=== PATIENT | male | born 1985 | race Caucasian/White ===

== ENCOUNTER 2024-01-05 14:55 | Observation (INO) | payer BC, SELFPAY ==
--- NOTE | 2024-01-05 13:35 | ADMGEN ---
This patient, Aneudy Montes, was admitted to Medical Room 252-01. Patient/family oriented to hospital policies and general routines including ID bracelet, bed and alarms, visiting hours, pain management, procedures, bathroom and other care routines, personal items, smoking policy, room service/diet, and visiting hours. Information on how to activate the Rapid Response Team has been discussed. Patient/Family are encouraged to report perceived risks to care and to ask questions if they do not understand what they are told or what they should do.
[2024-01-05 14:10] VITALS: BP 111/74; PULSE 76; RESP 16; TEMP 36.5; O2SAT 97
[2024-01-05 14:14] VITALS: BMI 22.4
--- NOTE | 2024-01-05 15:07 | PM.IMHP ---
H&P: HPI History of Present Illness Date/Time: 01/05/24 15:07 Chief Complaint: Seizure Narrative: 38 y/o M presents here with seizure activity with PMH of alcohol abuse, GERD, anxiety/depression, and seizure. The patient presents here from [facility]. Patient was initially seen there after he had a seizure for which he was postictal for approximately 30 minutes. Spouse at the bedside reports the the seizure occurred either just before he was going to get up to the restroom or while he was asleep. Occurred around 03:30 am. Patient was stable and prepped for discharge when he had a witnessed tonic-clonic seizure which was aborted with 2 mg of Ativan. Prior to second seizure which occurred around 06:30 am, spouse reports that the patient appeared ill and looked nauseated. Post seizure-like activity he became hypoxic which has since resolved. Patient reports his last drink was on Tuesday 01/02 when he had 2 drinks but he reports that he drank heavily over the weekend. He drinks approximately 12-15 beers x3-4 days. Patient reports he has heavily drank for a number of years with intermittent times of cessation but has been drinking more heavily in the last year. Patient does not have a previous history of seizure activity or seizure activity with withdrawal. No recent trauma or head injury. Initial VS at presentation: 97.7? F, HR 76, RR 16, 111/74, and 97% on RA. Workup at OSH showed: no leukocytosis, hgb 12.5, crepe maker 1.26 and GFR 74, normal AST/ALT, Mag 1.7, and UDS showed marijuana. Head CT showed no acute intracranial abnormalities. MRI w/o con showed the petrous and cavernous portions of the internal carotid arteries are patent. Anterior cerebral arteries are patent. Middle cerebral arteries are patent. Termination of the right vertebral artery and a posterior right inferior cerebral artery branch. The hip basilar arteries patent. Left vertebral artery dominant posterior circulation. Prominent left posterior communicating artery. Posterior cerebral arteries are patent. Review of Systems Review of Systems: All systems reviewed & are unremarkable except as noted in HPI and below [facility] Past Medical History Medical History (Updated 01/05/24 @ 16:54 by Chastity Hedrick, PEREZ) Alcohol abuse Anxiety Depression GERD (gastroesophageal reflux disease) Hernia Family History Family History Other No significant medical problems Social History Social History Years smoked: 19 Smoking status: Current every day smoker Tobacco type: cigarettes Alcohol intake: current Drinks per week: 36 Substance use: current Substance use type: marijuana Last use: 01/04/24 Do You Feel Safe in your Home?: Yes Lack of Transportation: No Lack of Food: Never True Current Housing: I Have Housing Concerned About Future Housing: No Difficulty Paying Gas/Electric Bills: No Difficulty Paying for Meds: No Currently Unemployed: No Education: Bachelor's Degree Difficulty w/ Childcare or Family Care: No Spiritual care concerns: No Meds Home Medications and Allergies Home Medications Medication Instructions Recorded Confirmed Type No Home Medications 01/05/24 01/05/24 History Allergies Allergy/AdvReac Type Severity Reaction Status Date / Time No Known Allergies Allergy Verified 01/05/24 13:59 Vital Signs Vital Signs - 24 hr 01/05/24 14:00 01/05/24 14:10 Temperature 97.7 F Pulse Rate 76 Respiratory Rate 16 Blood Pressure 111/74 Pulse Oximetry 97 Oxygen Delivery Room Air Exam Const: General: comfortable and no acute distress Other: , male, nontoxic appearance HENMT: Face/Nose/Sinus: Normal nares present Mouth: Yes moist mucous membranes Eyes: General: appearance normal, both eyes and all related structures Sclera: sclerae normal
[2024-01-05] MEDS: chlordiazePOXIDE (*CRX) 25 MG CAPSULE PO ×2 (15:24→23:14)
[2024-01-05 15:45] LABS: Alanine Aminotransferase 24 U/L (6-50); Albumin Level 3.8 g/dL (3.5-5.1); Alkaline Phosphatase 39 U/L (38-126); Anion Gap 6 mmol/L (4-12); Aspartate Amino Transferase 49 U/L (17-59); Blood Urea Nitrogen 7 mg/dL (9-20); Calcium 8.4 mg/dL (8.4-10.2); Carbon Dioxide 28 mmol/L (22-30); Chloride 101 mmol/L (98-107); Estimated CRCL calculation 126 ml/min; Estimated Glomerular Filt Rate > 60; Glucose 92 mg/dL (65-110); Magnesium 2.3 mg/dL (1.6-2.3); Potassium 3.8 mmol/L (3.4-5.0); Sodium 135 mmol/L (137-145)
[2024-01-05 16:04] VITALS: PULSE 73
[2024-01-05 20:00] VITALS: PULSE 89
[2024-01-05 22:00] VITALS: BP 122/73; PULSE 83; RESP 18; TEMP 36.7; O2SAT 99
[2024-01-05] MEDS: MELATONIN 5 MG TABLET PO (23:14)
[2024-01-05 23:24] LABS: Glucose Point of Care 87 mg/dl (65-105)
[2024-01-06] VITALS: PULSE 64
[2024-01-06 04:00] VITALS: PULSE 71
[2024-01-06 06:00] VITALS: BP 124/85; PULSE 78; RESP 18; TEMP 36.7; O2SAT 97
[2024-01-06 06:04] LABS: Basophils Percent Auto 0.7 % (0.2-1.2); Eosinophils Absolute Auto 0.1 K/mm3 (0-0.3); Eosinophils Percent Auto 1.3 % (0-4.4); Hematocrit 38.8 % (42.0-52.0); Hemoglobin 13.1 g/dL (14.0-18.0); Immature Granulocyte Absolute 0.01 K/mm3 (0.00-0.031); Immature Granulocyte Percent A 0.2 % (0-0.5); Lymphocytes Absolute Auto 1.47 K/mm3 (0.9-3.2); Lymphocytes Percent Auto 26.7 % (18.3-44.2); Mean Corpuscular HGB Conc 33.8 g/dl (32-36); Mean Corpuscular Hemoglobin 34.2 pg (26-34); Mean Corpuscular Volume 101.3 fl (80-100); Monocytes Absolute Auto 0.8 K/mm3 (0.1-0.6); Monocytes Percent Auto 14.9 % (2.6-8.5); Neutrophils Absolute Auto 3.1 K/mm3 (1.3-6.7); Neutrophils Percent Auto 56.2 % (45.5-73.1); Platelet Count Result 209 k/mm3 (150-375); Red Blood Count 3.83 M/mm3 (4.6-6.20); Red Cell Distribution Width 12.2 % (11.5-14.5); White Blood Count 5.5 K/mm3 (4.5-10.0)
[2024-01-06 06:15] LABS: Glucose Point of Care 93 mg/dl (65-105)
[2024-01-06 07:20] LABS: Folic Acid > 20.0 ng/mL (2.76->20)
[2024-01-06 08:00] VITALS: PULSE 70
[2024-01-06] MEDS: FOLIC ACID 1 MG TABLET PO (08:21)
[2024-01-06] MEDS: THIAMINE HCL 200 MG/2 ML VIAL 100 MG IV PUSH (08:21)
--- NOTE | 2024-01-06 10:45 | PM.DS ---
DS: Admitting Diagnosis Discharge Date 01/06/2024 Admitting Diagnosis Seizures DS: Discharge Diagnosis Discharge Diagnosis (1) Seizure: Code(s): R56.9 - Unspecified convulsions Status: Acute Assessment and Plan: - Head CT and MRI at OSH unremarkable - hx of binge drinking/heavy alcohol use - but seizures do not appear alcholol related - neurology rounding - started on Keppra at OSH - pt to have EEG prior to DC - and follow in neurology clinic - pt dc with keppra 750 mg po bid (2) Alcohol abuse: Code(s): F10.10 - Alcohol abuse, uncomplicated Status: Acute Assessment and Plan: - appears to be more in line with binge drinking - thiamine and folic acid daily - last drink on Tuesday 01/02 - continue as outpatient - pt advised to stop drinking alcholol DS: Summary Hospital Course Hospital Course: 38 y/o M presents here with seizure activity with PMH of alcohol abuse, GERD, anxiety/depression, and seizure. The patient presents here from [place], [place] Patient was initially seen there after he had a seizure for which he was postictal for approximately 30 minutes. Spouse at the bedside reports the the seizure occurred either just before he was going to get up to the restroom or while he was asleep. Occurred around 03:30 am. Patient was stable and prepped for discharge when he had a witnessed tonic-clonic seizure which was aborted with 2 mg of Ativan. Prior to second seizure which occurred around 06:30 am, spouse reports that the patient appeared ill and looked nauseated. Post seizure-like activity he became hypoxic which has since resolved. Patient reports his last drink was on Tuesday 01/02 when he had 2 drinks but he reports that he drank heavily over the weekend. He drinks approximately 12-15 beers x3-4 days. Patient reports he has heavily drank for a number of years with intermittent times of cessation but has been drinking more heavily in the last year. Patient does not have a previous history of seizure activity or seizure activity with withdrawal. No recent trauma or head injury. Initial VS at presentation: 97.7? F, HR 76, RR 16, 111/74, and 97% on RA. Workup at OSH showed: no leukocytosis, hgb 12.5, bedspread cutter hand 1.26 and GFR 74, normal AST/ALT, Mag 1.7, and UDS showed marijuana. Head CT showed no acute intracranial abnormalities. MRI w/o con showed the petrous and cavernous portions of the internal carotid arteries are patent. Anterior cerebral arteries are patent. Middle cerebral arteries are patent. Termination of the right vertebral artery and a posterior right inferior cerebral artery branch. The hip basilar arteries patent. Left vertebral artery dominant posterior circulation. Prominent left posterior communicating artery. Posterior cerebral arteries are patent. - Head CT and MRI at OSH unremarkable - hx of binge drinking/heavy alcohol use - started on Keppra at OSH - pt to have EEG prior to DC - and follow in neurology clinic - pt dc with keppra 750 mg po bid Time Spent with Patient Time attestation: Total time spent providing and/or coordinating discharge services:50 minutes on day of dc Exam Const: General: comfortable and no acute distress Other: , male, nontoxic appearance HENMT: Face/Nose/Sinus: Normal nares present Mouth: Yes moist mucous membranes Eyes: General: appearance normal, both eyes and all related structures Sclera: sclerae normal Pupils: Equal, round and reactive pupils present EOM: EOMs intact bilaterally Resp: Effort & Inspection: normal respiratory effort Auscultation: clear to auscultation bilaterally Cardio: Rate: regular rate Rhythm: regular rhythm Other: S1-S2 present without murmur, rub, ectopy Skin: General skin exam: normal color and no rashes or lesions noted Wounds: no wounds Other: skin dry Neuro: Cranial nerves: Yes Equal, round and reactive pupils present Speech: normal speech
--- NOTE | 2024-01-06 10:57 | WPDNEURCNPN ---
Assessment and Plan Assessment and plan (1) Seizure: Code(s): R56.9 - Unspecified convulsions Status: Acute (2) Alcohol abuse: Code(s): F10.10 - Alcohol abuse, uncomplicated Status: Acute Plan I did not see any alcohol withdrawal features at the time the examination this morning. He does not have any tremor of the hand. He appears fairly clear. This even is concerning since the with a he had alcohol withdrawal seizures or he had seizures due to another etiology require investigation. MRI of the brain with and without contrast and EEG are strongly recommended. Subsequently I received a call from the hospitalist Dr. Lofton the patient is wants to sign out. I strongly urged her to pursue this patient to stay on at least Keppra 750 mg twice a day and get the testing done and I will be glad to see him in my office in 1 or 2 months in the meanwhile he should not drive and safety precautions are recommended. However his compliance will be very questionable given the desire to leave without any investigation ordering meds. Consult date: 01/06/24 HPI: Aneudy Montes is a 38 year old male history of 2 spells of seizures before she was transferred over to this facility from [place] very presented to the emergency room. Apparently had a brief spells lasting for few minutes followed by state of confusion. Patient's was present the time of evaluation. He was thought to have alcohol withdrawal spells nevertheless because he had 2 spells he was given a loading dose of Keppra at the referring hospital however this has been on hold since he arrived. He has not had any abnormal behavior or shaking or tremulousness. The patient apparently drinks alcohol in binges. He works cleaning the house is. He denies any other active symptoms at this time. I do not have any of the radiological studies to look at. According to the patient he has had some scans done at the presenting Hospital where he did not appear to have any significant abnormalities. There is no prior history of seizures before the onset of the spells this time. Review of Systems Review of Systems: All systems reviewed & are unremarkable except as noted in HPI and below [facility] Past Medical History Medical History (Updated 01/05/24 @ 16:54 by Chastity Hedrick, PEREZ) Alcohol abuse Anxiety Depression GERD (gastroesophageal reflux disease) Hernia Family History Family History Other No significant medical problems Social History Social History Years smoked: 19 Smoking status: Current every day smoker Tobacco type: cigarettes Alcohol intake: current Drinks per week: 36 Substance use: current Substance use type: marijuana Last use: 01/04/24 Do You Feel Safe in your Home?: Yes Lack of Transportation: No Lack of Food: Never True Current Housing: I Have Housing Concerned About Future Housing: No Difficulty Paying Gas/Electric Bills: No Difficulty Paying for Meds: No Currently Unemployed: No Education: Bachelor's Degree Difficulty w/ Childcare or Family Care: No Spiritual care concerns: No Meds Home Medications and Allergies Home Medications Medication Instructions Recorded Confirmed Type No Home Medications 01/05/24 01/05/24 History Allergies Allergy/AdvReac Type Severity Reaction Status Date / Time No Known Allergies Allergy Verified 01/05/24 13:59 Vital Signs Vital Signs - 24 hr 01/05/24 14:00 01/05/24 14:10 01/05/24 16:04 Temperature 97.7 F Pulse Rate 76 73 Respiratory Rate 16 Blood Pressure 111/74 Pulse Oximetry 97 Oxygen Delivery Room Air 01/05/24 22:00 01/05/24 20:00 01/06/24 00:00 Temperature 98.0 F Pulse Rate 83 89 64 Respiratory Rate 18 Blood Pressure 122/73 Pulse Oximetry 99 Oxygen Delivery 01/06/24 06:00 01/06/24 04:00
[2024-01-06] MEDS: levETIRAcetam Tablet 250 MG, levETIRAcetam Tablet 500 MG 750 MG PO (11:31)
--- NOTE | 2024-01-08 14:30 | WPDNEUROLOGY ---
Neurology EEG Report General Information Date of Study: 01/06/24 TEST Electroencephalogram DIAGNOSIS new onset seizure disorder CONDITION OF RECORDING bedside recording EEG NUMBER [id number] CLINICAL HISTORY History of alcoholism and new onset seizure disorder EEG DESCRIPTION During wakefulness the background activity consists of posterior dominant alpha rhythm at 9 hertz with an amplitude of 15-30 microvolts. This appears mildly formed. Anteriorly low amplitude mixed frequency activity was seen. Hyperventilation or photic stimulation were not performed. Patient did not progress to stage 2 sleep. IMPRESSION This is a normal EEG obtained during awake state.
[2024-01-12 07:31] LABS: Vitamin B1 162
== END 2024-01-06 14:08 | disposition home or self-care (01) ==
PROVIDERS: Student in an Organized Health Care Education/Training Program; Admitting Provider General Practice; PCP Family Medicine Sports Medicine; Visit Provider Family Medicine
DX: R56.9 Unspecified convulsions (principal); F10.10 Alcohol abuse, uncomplicated; K21.9 Gastro-esophageal reflux disease without esophagitis; F17.210 Nicotine dependence, cigarettes, uncomplicated; F41.8 Other specified anxiety disorders
CPT/HCPCS: 36415; 80053; 82607; 82746; 82948; 83735; 84425; 85025; 95816; 96372; A9270; G0378; J3411